=== PATIENT | female | born 1940 | race Caucasian/White ===

== ENCOUNTER 2023-06-29 08:55 | Inpatient (IN) | payer MEDICARE, OTHER ==
[2023-07-06] MEDS ORDERED: Diazepam 5 MG TAB ONE (06:48)
[2023-07-06] MEDS ORDERED: Aspirin 325 MG TAB ONE (06:48)
[2023-07-06] MEDS ORDERED: Nitroglycerin 50 MG/250 ML BOT 0 ML ONE (07:38)
[2023-07-06] MEDS ORDERED: Lidocaine 1% MPF 2 ML VIAL ONE (07:38)
[2023-07-06] MEDS ORDERED: Lidocaine 1% (PF) 30 ML VIAL ONE (07:38)
[2023-07-06] MEDS ORDERED: Heparin 10,000 UNITS/ 10 ML VIAL ONE (07:39)
[2023-07-06] MEDS ORDERED: Adenosine 6 MG/2 ML VIAL ONE (07:40)
[2023-07-06] MEDS ORDERED: Verapamil 5 MG/2 ML VIAL ONE (07:40)
[2023-07-06] MEDS ORDERED: Bivalirudin 250 MG VIAL ONE ×2 (07:40→09:32)
[2023-07-06] MEDS ORDERED: Atropine Sulfate 0.4 mg/1 ml Vial ONE (07:41)
[2023-07-06] MEDS ORDERED: PHENYLEPHRINE-NS 100 MCG/ML 10 ML SYRINGE ONE (07:42)
[2023-07-06 08:00] LABS: #Eosinphils 0.1 10x3/uL (0.0-0.5); #Monocytes 0.5 10x3/uL (0.0-1.1); #Neutrophils 2.2 10x3/uL (1.5-8.4); %Basophils 0.5 % (0.0-2.0); %Eosinophils 1.6 % (0.0-6.0); %Lymphocytes 26.3 % (18.0-47.0); %Monocytes 14.1 % (0.0-10.0); %Neutrophils 57.5 % (40.0-75.0); Hematocrit 31.7 % (34.9-44.5); Hemoglobin 10.4 g/dL (12.0-15.5); Mean Corpuscular HGB CONC 32.8 g/dL (32.0-36.0); Mean Corpuscular Hemoglobin 30.8 pg (27.0-33.0); Mean Corpuscular Volume 93.8 fl (81.6-98.3); Mean Platelet Volume 10.7 fl (7.4-10.4); Platelet Count 139 10x3/uL (150-450); RBC Distribution Width 12.7 % (11.5-14.5); Red Blood Cell (RBC) Count 3.38 10x6/uL (3.90-5.03); White Blood Cell (WBC) Count 3.8 10x3/uL (3.5-10.5)
[2023-07-06 08:02] LABS: Anion Gap 13 mmol/L (10-20); BUN (Urea Nitrogen) 23 mg/dL (9.8-20.1); Calc. Creatinine Clearance 0 mL/min (70-130); Calcium 9.3 mg/dL (7.8-10.44); Carbon Dioxide 28 mmol/L (23-31); Chloride 105 mmol/L (98-107); Estimated GFR 36; Glucose 124 mg/dL (83-110); Potassium 3.9 mmol/L (3.5-5.1); Prothrombin Time 10.8 sec (9.5-12.1); Sodium 142 mmol/L (136-145)
[2023-07-06] MEDS ORDERED: fentaNYL 50 mcg/mL 1 mL Vial ONE (08:29)
[2023-07-06] MEDS ORDERED: Midazolam HCl 2 mg/2 ml Vial ONE (08:29)
[2023-07-06] MEDS ORDERED: TICAGRELOR 90 MG TABLET ONE (08:51)
[2023-07-06 10:25] VITALS: BMI 22.6
[2023-07-06] MEDS: Sodium Chloride 0.9% 1,000 ML IV SCH ×2 (10:30→20:32)
[2023-07-06] MEDS ORDERED: Iopamidol 300 61% 100 ML VIAL FS ONE (15:01)
[2023-07-06] MEDS ORDERED: TICAGRELOR 90 MG TABLET PO SCH (21:00)
[2023-07-07 03:52] LABS: #Eosinphils 0.1 10x3/uL (0.0-0.5); #Monocytes 0.6 10x3/uL (0.0-1.1); #Neutrophils 3.8 10x3/uL (1.5-8.4); %Basophils 0.2 % (0.0-2.0); %Eosinophils 0.9 % (0.0-6.0); %Monocytes 11.2 % (0.0-10.0); %Neutrophils 69.1 % (40.0-75.0); Hematocrit 24.2 % (34.9-44.5); Hemoglobin 7.8 g/dL (12.0-15.5); Mean Corpuscular HGB CONC 32.2 g/dL (32.0-36.0); Mean Corpuscular Hemoglobin 31.2 pg (27.0-33.0); Mean Corpuscular Volume 96.8 fl (81.6-98.3); Mean Platelet Volume 11.3 fl (7.4-10.4); Platelet Count 132 10x3/uL (150-450); RBC Distribution Width 12.8 % (11.5-14.5); White Blood Cell (WBC) Count 5.4 10x3/uL (3.5-10.5)
[2023-07-07 04:00] LABS: ALT (SGPT) 7 U/L (8-55); AST (SGOT) 14 U/L (5-34); Albumin 3.2 g/dL (3.4-4.8); Alkaline Phosphatase 45 U/L (40-110); Anion Gap 13 mmol/L (10-20); BUN (Urea Nitrogen) 31 mg/dL (9.8-20.1); Bilirubin, Total 0.5 mg/dL (0.2-1.2); Calc. Creatinine Clearance 25 mL/min (70-130); Calcium 8.1 mg/dL (7.8-10.44); Carbon Dioxide 23 mmol/L (23-31); Chloride 110 mmol/L (98-107); Estimated GFR 35; Globulin 1.8 g/dL (2.4-3.5); Glucose 135 mg/dL (83-110); Sodium 142 mmol/L (136-145)
[2023-07-07 05:02] VITALS: BP 137/31; TEMP 98.1
[2023-07-07] MEDS: Sodium Chloride 0.9% 1,000 ML IV SCH (05:16)
[2023-07-07 07:38] LABS: Hematocrit 23.5 % (34.9-44.5); Hemoglobin 7.8 g/dL (12.0-15.5)
[2023-07-07] MEDS ORDERED: Cholecalciferol 1,000 UNITS (25 MCG) TAB PO SCH (09:00)
[2023-07-07] MEDS ORDERED: Aspirin 81 mg Enteric Coated Tablet PO SCH (09:00)
[2023-07-07] MEDS ORDERED: Atorvastatin Calcium 10 MG TAB PO SCH (09:00)
[2023-07-07] MEDS ORDERED: Clopidogrel Bisulfate 75 MG TAB PO SCH (09:00)
== END 2023-07-07 09:55 | disposition home or self-care (01) | DRG 36 ==
LOC: CSHTELE 07-06 06:12 → CSHIMCU 07-06 10:27
PROVIDERS: ADMIT Specialist; ATTEND Specialist
PROC: 037L3DZ Dilation of Left Internal Carotid Artery with Intraluminal Device, Percutaneous Approach (ICD-10-PCS; principal; 2023-07-06)
PROC: B3101ZZ Fluoroscopy of Thoracic Aorta using Low Osmolar Contrast (ICD-10-PCS; 2023-07-06)
DX: I65.23 Occlusion and stenosis of bilateral carotid arteries (principal); E78.5 Hyperlipidemia, unspecified; I10 Essential (primary) hypertension; R73.03 Prediabetes; E11.9 Type 2 diabetes mellitus without complications; Z85.3 Personal history of malignant neoplasm of breast; Z90.12 Acquired absence of left breast and nipple; Z98.890 Other specified postprocedural states; Z82.49 Family history of ischemic heart disease and other diseases of the circulatory system
CPT/HCPCS: 36223; 36228; 36415; 37215; 80048; 80053; 85025; 85610; 93005; 93010; 99152; 99153; C1760; C1769; C1876; C1884; C1894; J0153; J0461; J0583; J1644; J2001; J2250; J3010; J7050; Q9967